=== PATIENT | female | born 1940 | race Two or more races ===

== ENCOUNTER 2019-07-28 12:22 | Inpatient (IN) | payer BC ==
[~2019-07-28] VITALS: Ht 165.1 cm; Wt 52.2 kg
--- NOTE | 2019-07-28 12:22 | NUR ---
BIB [facility] FROM HOME, LEFT HIP/THIGH PAIN AFTER SHE "LOST MY BALANCE" AND FELL ON HER LEFT SIDE,DENIES LOC/DIZZINESS, TO ER BED 10, HOOKED TO MONITOR, CHANGED TO HOSP GOWN, NOTED W L HIP SWELLING. POSITIONED IN COMFORT. AWAITING MD CHAHAL.
[2019-07-28] MEDS ORDERED: LISI2.5T2 PO (12:31)
--- NOTE | 2019-07-28 13:02 | NUR ---
DR COWAN AT BEDSIDE
--- NOTE | 2019-07-28 13:35 | NUR ---
SUPERVISOR LINE DEPARTMENT AT BEDSIDE
[2019-07-28] MEDS ORDERED: MORPHINE SULFATE INJ 2 MG/ML DISP.SYRIN IV ONE ×2 (14:00→15:30)
[2019-07-28] MEDS ORDERED: ONDANSETRON HCL/PF 4 MG/2 ML VIAL IVP ONE (14:00)
[2019-07-28] MEDS ORDERED: ONDANSETRON HCL/PF 4 MG/2 ML VIAL ONE ×2 (14:23→15:04)
[2019-07-28] MEDS ORDERED: MORPHINE SULFATE INJ 4 MG/ML DISP.SYRIN ONE (14:23)
[2019-07-28 14:34] LABS: BASOPHILS % (AUTO) 0.6 % (0.0-2.0); HEMATOCRIT 35 % (33-45); HEMOGLOBIN 11.9 g/dL (11.5-14.8); LYMPHOCYTES # (AUTO) 1.1 /CMM (0.8-4.8); LYMPHOCYTES % (AUTO) 14.7 % (20.0-44.0); MEAN CORPUSCULAR HGB CONC 34 g/dl (31.0-36.0); MEAN CORPUSCULAR VOLUME 90 fL (82-100); MONOCYTES # (AUTO) 0.7 /CMM (0.1-1.30); NEUTROPHILS # (AUTO) 5.6 /CMM (1.8-8.9); NEUTROPHILS % (AUTO) 73.7 % (43.0-81.0); PLATELET COUNT (AUTO) 269 /CMM (150-450); WHITE BLOOD COUNT (AUTO) 7.5 K/uL (4.3-11.0)
[2019-07-28 14:38] LABS: CALCIUM, SERUM 8.6 mg/dL (8.5-10.1); CREATININE 0.6 mg/dL (0.6-1.3); POTASSIUM 4.1 mmol/L (3.5-5.1)
--- NOTE | 2019-07-28 14:49 | NUR ---
117-[address] [facility]
[2019-07-28] MEDS ORDERED: MORPHINE SULFATE INJ 2 MG/ML DISP.SYRIN ONE (15:04)
[2019-07-28] MEDS ORDERED: LISI10TA5 PO (15:08)
[2019-07-28] MEDS ORDERED: ALEN70TA6 PO (15:08)
[2019-07-28] MEDS ORDERED: CYCL30DR OP (15:08)
[2019-07-28] MEDS ORDERED: ONDANSETRON HCL/PF - ER 4 MG/2 ML VIAL IV ONE (15:30)
--- NOTE | 2019-07-28 15:32 | NUR ---
CALLED [facility], PAGED ANGEL LUIS HARDY
--- NOTE | 2019-07-28 15:34 | NUR ---
CALLED [facility] FOR CONSULT
--- NOTE | 2019-07-28 16:00 | NUR ---
india middleton at bedside
[2019-07-28] MEDS ORDERED: IV NS 0.9% 1,000 ML IV PRN (16:46)
[2019-07-28] MEDS ORDERED: MAG HYDROX/AL HYDROX/SIMETH 30 ML UDC PO PRN (17:00)
[2019-07-28] MEDS ORDERED: ACETAMINOPHEN 325 MG TABLET PO PRN (17:00)
[2019-07-28] MEDS: DOCUSATE SODIUM 100 MG CAPSULE PO SCH (17:00)
[2019-07-28] MEDS ORDERED: Z GUARD REMEDY 2 OZ OINT TP PRN (17:00)
[2019-07-28] MEDS ORDERED: MAGNESIUM HYDROXIDE 30 ML UDC PO PRN (17:00)
--- NOTE | 2019-07-28 17:12 | NUR ---
REPORT GIVEN TO LEONORA GONSALES OF MS UNIT
--- NOTE | 2019-07-28 17:45 | NUR ---
MS RN NOTE RECEIVED PATIENT FROM ER WITH DX FX LT HIP UDDER CARE ANGEL LUIS HERBERT RN REPLANTING MACHINE CREW PATIENT ALERT ORIENTED , VS [facility]ITAL ORIENTATION DONE , FAMILY AT BEDSIDE , STARTED ON IVF ORDERED RT AC HL INTACT AND FLUSHED WELL , BED IN LOWEST AND LOCKED POSITION , BELONGING CHECKED BY LEATHER FITTER C\O LT HIP PAIN ICE APPLIED , WILL KEEP NPO ORDERED Addendum: 07/28/19 at 1905 by GLORY GARCIA RN 2D ECHO DOING NOW
[2019-07-28 17:49] VITALS: BP 135/64
--- NOTE | 2019-07-28 18:00 | NUR ---
MS RN NOTE PATIENT REFUSED TO CHECK COMPLEAT BODY AND REFUSED TO PICTURE ON BOTH HEELS , WILL INDORSED TO NEXT SHIFT
[2019-07-28 18:15] VITALS: BP 135/64
--- NOTE | 2019-07-28 19:15 | NUR ---
RN NOTES: RECEIVED AWAKE ON BED,SHE WAS CRYING WITH RELATIVES ON BED SIDE, A/OX3, ON RA SPO2-99%,S/P FALL FROM HOME WITH FRACTURE OF THE LEFT HIP AREA, OKSANA [place]#20 PATENT, WITH NS AT 50ML/HR , ORIENTED TO UNIT AND STAFF, BED LOW AND LOCKED, CALL LIGHT WITHIN EASY REACH,FALL,SAFETY, AND ASPIRATION PRECAUTION OBSERVED.UPON ENDORSEMENT GIVEN PAIN MEDICATION, FOR CT SCAN OF LEFT HIP,KEEP ON CLOSE WATCH, NEEDS ANTICIPATED. Addendum: 07/28/19 at 2233 by SHAN LO RN ADDED NOTED: ECHO DONE UPON ENDORSEMENT PER TRAINING ANALYST EF-55%. STILL AWAITING FOR OFFICIAL RESULT.
[2019-07-28] MEDS: MORPHINE SULFATE INJ 2 MG/ML DISP.SYRIN IV PRN (19:27)
--- NOTE | 2019-07-28 19:33 | NUR ---
MS RN NOTE MORPHINE 2 MG IVP GIVEN ORDERED
[2019-07-28 20:00] VITALS: BP 160/70
--- NOTE | 2019-07-28 20:57 | NUR ---
RN NOTES: CT SCAN OF LEFT HIP DONE AT 2007, [place] [facility] [place], STILL AWAITING FOR THE RESULT. Addendum: 07/28/19 at 2058 by SHAN LO RN RN NOTES: FAMILY CAME AT 2049, EXPLAINED TO THEM IF ITS OK TO DO BODY ASSESSMENT, PATIENT PREFER TO REST AND SHE REFUSE TO BE MOVE/REPOSITION SHE FEEL PAIN UPON CHANGING OF POSITION AND ONLY NOW SHE FEEL MUCH BETTER, RESPECT FAMILY WISH TO DO BODY ASSESSMENT IN THE MORNING.
--- NOTE | 2019-07-28 22:23 | NUR ---
RN NOTES: CT SCAN OF THE LEFT HIP W/O CONTRAST RESULT IN- IMPRESSION: COMMINUTED INTERTROCHANTERIC FRACTURE OF THE LEFT HIP, DR. BURNETT NOTIFIED, HE ASKED IF PATIENT WAS SEEN BY ORTHO, NOT YET SEEN, LATEST BP-153/72 HR-108, PATIENT IS ASLEEP WITH SON PRESENT AT BEDSIDE(TRIM OPERATOR AWARE SON STAY PER PATIENT REQUEST).KEPT MONITORED.
--- NOTE | 2019-07-29 00:10 | NUR ---
RN NOTES; AWAKE COMPLAINED OF SEVERE PAIN ON THE LEFT HIP 05/04, SON REQUEST TO GIVE MORPHINE, BP 154/71 HR-113, PAIN MEDICATION GIVEN, KEPT ON CLOSE WATCH.
--- NOTE | 2019-07-29 00:56 | NUR ---
RN NOTES: SON PRESENT AT BED SIDE VERY CONCERN ABOUT HIS MOTHER INCREASE HR AND REQUEST FOR MONITOR, EXPLAINED TO HIM OF NOW SHE IS IN PAIN THAT IS WHY HER HR IS HIGH, IT IS SECONDARY TO PAIN DUE TO HER LEFT HIP FX S/P FALL, RELAYED TO LOKIE ENGINEER DR. BURNETT,HR IS =108 REGULAR, OF THIS TIME PATIENT REMAIN IN MED-SURG, HE ORDERED TO GET THE BASELINE EKG STAT,SHE MIGHT HAVE SURGERY TOMORROW. -EKG DONE AT 0040 SINUS TACHYCARDIA RATE-108.
[2019-07-29 04:00] VITALS: BP 134/75
[2019-07-29] MEDS: MORPHINE SULFATE INJ 2 MG/ML DISP.SYRIN IV PRN ×2 (04:06)
--- NOTE | 2019-07-29 04:23 | NUR ---
RN NOTES: 0406- ABLE TO SLEEP AT SHORT INTERVALS, WHEN SHE WAKE UP SHE COMPLAINED OF SEVERE PAIN ON HER LEFT HIP, PRN MEDS GIVEN, NON PHARMACOLOGIC INTERVENTION RENDERED.
--- NOTE | 2019-07-29 07:00 | NUR ---
RN INITIAL NOTE PATIENT IN BED, AWAKE AND ALERT. FAMILY AT BEDSIDE. NO COMPLAINS OF ANY PAIN NOR SOB AT THIS TIME. BED LOCKED AND IN LOWEST POSITION. CALL LIGHT WITHIN REACH, WILL CONTINUE TO MONITOR
--- NOTE | 2019-07-29 07:37 | NUR ---
RN NOTES: -SON AND DAUGHTER PRESENT AT BED SIDE, THEY EXPRESS THEIR FEELING THAT THEY ARE EXPECTING TO SEE AN ORTHO DOCTOR FIRST THING IN THE MORNING, REQUEST INCOMING RN TO F/U. -KEEP ON MONITORED, FALL,SAFETY AND ASPIRATION PRECAUTION OBSERVED, ENDORSED FOR CONTINUITY OF CARE.
[2019-07-29 08:00] VITALS: BP 150/82
[2019-07-29 08:02] LABS: BASOPHILS % (AUTO) 0.4 % (0.0-2.0); EOSINOPHILS % (AUTO) 0.2 % (0.0-6.0); HEMATOCRIT 34 % (33-45); HEMOGLOBIN 11.6 g/dL (11.5-14.8); LYMPHOCYTES # (AUTO) 1.5 /CMM (0.8-4.8); LYMPHOCYTES % (AUTO) 22.9 % (20.0-44.0); MEAN CORPUSCULAR HGB CONC 34 g/dl (31.0-36.0); MEAN CORPUSCULAR VOLUME 90 fL (82-100); MONOCYTES # (AUTO) 0.8 /CMM (0.1-1.30); MONOCYTES % (AUTO) 11.7 % (2.0-12.0); NEUTROPHILS # (AUTO) 4.2 /CMM (1.8-8.9); NEUTROPHILS % (AUTO) 64.8 % (43.0-81.0); PLATELET COUNT (AUTO) 241 /CMM (150-450); RED BLOOD CELL COUNT(AUTO) 3.79 MIL/uL (4.0-5.2); WHITE BLOOD COUNT (AUTO) 6.5 K/uL (4.3-11.0)
[2019-07-29 08:13] LABS: CALCIUM, SERUM 8.2 mg/dL (8.5-10.1); CARBON DIOXIDE 21 mmol/L (21-32); CHLORIDE 99 mmol/L (98-107); CREATININE 0.5 mg/dL (0.6-1.3); GLUCOSE 103 mg/dL (74-106); MAGNESIUM 1.7 mg/dL (1.8-2.4); PHOSPHORUS 3.1 mg/dL (2.5-4.9); POTASSIUM 3.8 mmol/L (3.5-5.1); SODIUM SERUM 133 mmol/L (136-145); UREA NITROGEN, BLOOD 14 mg/dL (7-18)
[2019-07-29 08:14] LABS: CHOLESTEROL 142 mg/dL (<200); HDL CHOLESTEROL 72 mg/dL (40-60); LDL 65 mg/dL (0-99); THYROID STIMULATING HORMONE 1.716 uIU/mL (0.358-3.74); TRIGLYCERIDES 41 mg/dL (30-150)
[2019-07-29] MEDS: DOCUSATE SODIUM 100 MG CAPSULE PO SCH ×2 (08:59→16:23)
[2019-07-29] MEDS: LISINOPRIL (10MG) 10 MG TABLET PO SCH ×2 (08:59→16:24)
[2019-07-29] MEDS ORDERED: Cyclosporine (Restasis) 1 EACH EACHEYE SCH (09:00)
[2019-07-29] MEDS: Magnesium 1GM/D5W 100ML PREMIX 100 ML IV SCH ×2 (09:38→11:37)
[2019-07-29] MEDS: IV NS 0.9% 1,000 ML IV PRN (09:59)
--- NOTE | 2019-07-29 10:59 | NUR ---
RN JASON LEVI WAS AT BEDSIDE, TALKED TO THE FAMILY AT BEDSIDE AND THE PATIENT. PATIENT CAN EAT NOW AND WILL PROBABLY HAVE SURGERY TOMORROW. Addendum: 07/29/19 at 1635 by QUOC BERMUDEZ RN SURGERY TOMORROW AT 11AM. CONSENT FORM SIGNED BY PATIENT.
--- NOTE | 2019-07-29 12:28 | NUR ---
RN NOTE PER PATIENT AND SON AT BEDSIDE, SHE DOES NOT TAKE Cyclosporine (Restasis) ANYMORE. DC'D FROM THE PATIENT'S HOME MEDICATION, PHARMACY AWARE
[2019-07-29 16:00] VITALS: BP 132/75
[2019-07-29] MEDS ORDERED: ANESTHESIA TRAY IN PYXIS 1 EA TRAY MC ONE (16:20)
[2019-07-29] MEDS: HYDROCODONE/APAP 5/325MG 1 EACH TABLET PO PRN ×2 (16:23→20:57)
--- NOTE | 2019-07-29 19:00 | NUR ---
RN CLOSING NOTE PATIENT IN BED, AWAKE AND ALERT. DAUGHTER AT BEDSIDE. COMPLAINING OF PAIN, BUT TOLERABLE. AWARE THAT SHE HAS PRN PAIN MEDS FOR TONIGHT. PATIENT WILL HAVE SX TOMORROW AT 11AM. ALL CONSENT FORMS SIGNED BY PATIENT. ALL MEDS GIVEN. ALL NEEDS MET. WILL ENDORSE TO NOC SHIFT FOR JOSEPH
[2019-07-29 20:00] VITALS: BP 157/73
--- NOTE | 2019-07-29 20:58 | NUR ---
patient with daughter mat bedside,complaining of pain to the left hip. norco dose given for pain. refused to be turned to sides. will try to check oin the back and remove theold sheet form themnback at=fter 20 minuteds as patient has not been moved since admission
--- NOTE | 2019-07-29 22:21 | NUR ---
patient refused to be turned and daughter is aware,
[2019-07-30] MEDS: IV NS 0.9% 1,000 ML IV PRN (00:25)
--- NOTE | 2019-07-30 00:31 | NUR ---
npo post midnight and ptient is aware, fortheschedule surgery in am.asleep.no further complaints kathia
[2019-07-30 04:00] VITALS: BP 162/76
--- NOTE | 2019-07-30 06:51 | NUR ---
patient id asleep. refused to be turned and changed ,daughter and fsmiy is aware, npo and maintained
--- NOTE | 2019-07-30 07:38 | NUR ---
patient npo for the ordered procedure ,wconsent signed. family request for the patient to be transfered to a private room. and will follow upo
[2019-07-30 08:00] VITALS: BP 160/80
[2019-07-30] MEDS: LISINOPRIL (10MG) 10 MG TABLET PO SCH (09:06)
[2019-07-30] MEDS: DOCUSATE SODIUM 100 MG CAPSULE PO SCH ×2 (09:07→09:08)
[2019-07-30] MEDS ORDERED: BACITRACIN 50000 UNITS/VIAL ONE (10:54)
[2019-07-30] MEDS ORDERED: BUPIVACAINE 0.5 % PF 150 MG/30 ML VIAL ONE (10:54)
[2019-07-30] MEDS ORDERED: HYDROMORPHONE INJ 2 MG/ML DISP.SYRIN ONE (11:02)
[2019-07-30 12:50] LABS: HEMOGLOBIN 11.6 g/dL (11.5-14.8)
[2019-07-30] MEDS ORDERED: ONDANSETRON HCL/PF 4 MG/2 ML VIAL ONE (12:56)
[2019-07-30] MEDS ORDERED: IV LR 1000 ML 1,000 ML IV PRN (13:00)
--- NOTE | 2019-07-30 14:06 | NUR ---
alert , oriented, and appropriate, on bedrest, npo for coming surgery, with ivf running at 100cc per hour, no complaint of pain on L hip picked up for surgery at 11am, back from surgery at 1330, alert, oriented, no complaint of pain. Left upper thigh with two dressing intact. Patient is to get regular diet when available. per protocol , patient is DNA until 11 am tomorrow, then swich back to NO CODE. Oncoming will be made aware to follow this up , strictly
[2019-07-30 16:00] VITALS: BP 130/78
--- NOTE | 2019-07-30 16:21 | NUR ---
regular diet offered, did not eat, only asked for cookies, and oj. given denied pain at this time," felt much better now, not pain like before"
[2019-07-30] MEDS: HYDROCODONE/APAP 5/325MG 1 EACH TABLET PO PRN ×2 (16:30→20:50)
[2019-07-30 17:13] VITALS: BP 140/76
--- NOTE | 2019-07-30 19:42 | NUR ---
MS/RN OPENING NOTES RECEIVED PATIENT IN BED, AWAKE, ALERT, X3, ABLE TO VERBALIZE NEEDS, DAUGHTER AT BEDSIDE, INVOLVE WITH CARE, LEFT HIP INCISION SITE COVERED AND INTACT. HARMON CATHETHER DRAINING URINE, ON ROOM AIR, RESPIRATIONS EVEN AND UNLABORED, SKIN WARM TO TOUCH, RIGHT AC GAUGE 20 RUNNING LR AT 75 CC/HR, LAST NORCO GIVEN 3 HOURS AGO, REQUESTED TO HAVE NORCO AT TIME DUE FOR PAIN REPORTED 7/10 ON LEFT HIP. PROVIDED EDUCATION ON SAFETY MEASURES AND ANTIBIOTIC THERAPY, WILL ADMINISTER ANTIBIOTIC VIA IV AND TO REMOVE HARMON IN AM, DRESSING TO BE CHANGE BY ORTHO MF, WILL F/U COMMUNICATION ON POLST TO BE DNR TOMORROE AT 11 AM , BED LOCKED, CALL LIGHTS WITHIN REACH. PATIENT WATCHING TV WITH DAUGHTER.
[2019-07-30 20:00] VITALS: BP 109/59
[2019-07-30] MEDS: ANCEF 1 GM/50 ML D5W IV SCH ×2 (20:07)
--- NOTE | 2019-07-30 20:56 | NUR ---
MS/RN NOTES MODERATE PAIN 7/10 ON LEFT HIP REPORTED WITH FRIMACING AND GUARDING, NORCO 5-325 MG PO GIVEN, WILL MONITOR RELIEF.
[2019-07-31] MEDS: ANCEF 1 GM/50 ML D5W IV SCH ×2 (03:41)
[2019-07-31] MEDS: IV NS 0.9% 1,000 ML IV PRN (03:41)
[2019-07-31 04:00] VITALS: BP 114/56
--- NOTE | 2019-07-31 04:06 | NUR ---
MS/RN NOTES PATIENT REQUESTED TO KEEP HARMON CATHETER TILL LATER THIS AM AFTER BREAKFAST ONCE PRIOE TO PT FELA.
[2019-07-31 06:08] LABS: BASOPHILS % (AUTO) 0.3 % (0.0-2.0); HEMATOCRIT 27 % (33-45); HEMOGLOBIN 9.1 g/dL (11.5-14.8); LYMPHOCYTES # (AUTO) 1.3 /CMM (0.8-4.8); LYMPHOCYTES % (AUTO) 13.9 % (20.0-44.0); MEAN CORPUSCULAR HGB CONC 34 g/dl (31.0-36.0); MEAN CORPUSCULAR VOLUME 90 fL (82-100); MONOCYTES # (AUTO) 0.8 /CMM (0.1-1.30); MONOCYTES % (AUTO) 9.1 % (2.0-12.0); NEUTROPHILS # (AUTO) 7.1 /CMM (1.8-8.9); NEUTROPHILS % (AUTO) 76.7 % (43.0-81.0); PLATELET COUNT (AUTO) 186 /CMM (150-450); RED BLOOD CELL COUNT(AUTO) 2.97 MIL/uL (4.0-5.2); WHITE BLOOD COUNT (AUTO) 9.2 K/uL (4.3-11.0)
[2019-07-31 06:10] LABS: CALCIUM, SERUM 7.3 mg/dL (8.5-10.1); CREATININE 0.6 mg/dL (0.6-1.3); POTASSIUM 4.3 mmol/L (3.5-5.1)
--- NOTE | 2019-07-31 06:27 | NUR ---
102-1 MS/RN CLOSING NOTES PATIENT ABLE TO SLEEP DURING THE NIGHT, COMPLIANT AND PARTICIPATIVE WITH CARE, RESPIRATIONS EVEN AND UNLABORED,PAIN MANAGED WITH NORCO 5-325 MG, ANTIBIOTIC IV ADMINISTERED, HARMON REQUESTED TO BE REMOVED ONCE PHYSICAL THERAPY EVALUATED PATIENT.TO ENDORSE TO AM RN REGARDING PLAN OF CARE WITH POLST TO BE CHANGE TO DNR INSTRUCTED. SKIN WARM TO TOUCH, LEFT HIP DRESSING INTACT TO BE CHANGE BY MR. SANDIE DE LA TORREORSER TO AM RN FOR JOSEPH. BED LOCKED, CALL LIGHT WITHIN REACH.
--- NOTE | 2019-07-31 07:00 | NUR ---
RN MS NOTES - OPENING PATIENT IS A/O X4 PATIENT IS ON ROOM AIR. PATIENT IS SATURATING WELL . PATIENT SHOWS NO SIGNS OF ACUTE DISTRESS NO SOB. EVEN AND UNLABORED BREATHING . PATIENT DOES HAVE A HARMON INTACT AND PATENT . PATIENT URINE IS YELLOW AND LEAR. PATIENT HAS L/ R HEEL REDNESS. WOUND CONSULT . PATIENT HAS L HIP INSCISION. DRESSING INTACT AND DRY. PER DR ORDER . FIRST DRESSING CHANGE TO BE DONE BY DR. PATIENT HAS R WRIST IV @ 100 ML/HR . TURNED AND REPOSITION Q2H. TURN OFTEN POSSIBLE BUT PATIENT IS IN 8/10 PAIN WHEN MOVING BED LOCKED AND LOWEST POSITION CALL LIGHT WITH IN REACH . ALL SAFETY MEASURE IMPLEMENTED PER HOSPITAL POLICY.
[2019-07-31 08:00] VITALS: BP 132/67
[2019-07-31] MEDS: LISINOPRIL (10MG) 10 MG TABLET PO SCH (09:32)
[2019-07-31] MEDS: DOCUSATE SODIUM 100 MG CAPSULE PO SCH ×2 (09:32→17:55)
[2019-07-31] MEDS: HYDROCODONE/APAP 5/325MG 1 EACH TABLET PO PRN (09:32)
[2019-07-31] MEDS: ENOXAPARIN SODIUM 40 MG/0.4 ML DISP.SYRIN SQ SCH (09:33)
--- NOTE | 2019-07-31 10:44 | NUR ---
WOUND CARE CONSULT: PT SEEN FOR SKIN ASSESSMENT AND NOTED TO HAVE BLANCHABLE REDNESS TO HEELS AND LEFT HIP SURGICAL DRESSING WHICH IS DRY AND INTACT. SLIGHT LEAKAGE OF HARMON CATH NOTED. DISCUSSED SKIN PROTECTION WITH NURSING STAFF. PT WORKING WITH P.T. WILL SEE PRN. AMOR IN AGREEMENT WITH PLAN OF CARE. CURRENT ABHIJEET SCORE IS 15.
[2019-07-31 11:23] LABS: IRON, SERUM 18 ug/dl (50-175); TOTAL IRON BINDING CAPACITY 148 ug/dl (250-450)
[2019-07-31 11:36] LABS: FERRITIN 127 ng/mL (8-388)
[2019-07-31 12:00] VITALS: BP 111/55
[2019-07-31 16:00] VITALS: BP 111/55
[2019-07-31 18:55] LABS: HEMOGLOBIN 9.3 g/dL (11.5-14.8)
--- NOTE | 2019-07-31 19:35 | NUR ---
RN OPENING NOTES RECEIVED REPORT FROM WILFREDO RNDARIO. Pt IS AWAKE, RESTING IN BED. DAUGHTER VISITING AT BEDSIDE. Pt IS A/OX2-3, VERBAL, ABLE TO MAKE NEEDS KNOWN, Pt IS FORGETFUL AT TIMES. NO S/S OF ACUTE DISTRESS OR SOB NOTED. Pt C/O PAIN, WILL ADMINISTER PAIN MED ROSALEE IF TIME IS DUE. IV ACCESS R WRIST #20G, IVF NS @50ML/HR. SAFETY MEASURES IN PLACE. BED LOW, LOCKED, HOB ELEVATED, SIDE RAILS UP, CALL LIGHT AND BEDSIDE TABLE WITHIN REACH. WILL CONTINUE TO MONITOR Pt's CONDITION & SAFETY THROUGHOUT THE NIGHT.
[2019-07-31 20:00] VITALS: BP 157/75
[2019-07-31] MEDS: MORPHINE SULFATE INJ 2 MG/ML DISP.SYRIN IV PRN (21:46)
[2019-07-31] MEDS: ONDANSETRON HCL/PF 4 MG/2 ML VIAL IVP PRN (21:51)
[2019-08-01 04:00] VITALS: BP 145/75
[2019-08-01] MEDS: ONDANSETRON HCL/PF 4 MG/2 ML VIAL IVP PRN (05:00)
[2019-08-01] MEDS: HYDROCODONE/APAP 5/325MG 1 EACH TABLET PO PRN ×3 (05:02→18:02)
[2019-08-01] MEDS: IV NS 0.9% 1,000 ML IV PRN (05:17)
[2019-08-01 06:17] LABS: BASOPHILS % (AUTO) 0.2 % (0.0-2.0); EOSINOPHILS % (AUTO) 0.9 % (0.0-6.0); HEMATOCRIT 27 % (33-45); HEMOGLOBIN 9.1 g/dL (11.5-14.8); LYMPHOCYTES # (AUTO) 1.4 /CMM (0.8-4.8); LYMPHOCYTES % (AUTO) 18.5 % (20.0-44.0); MEAN CORPUSCULAR HGB CONC 35 g/dl (31.0-36.0); MEAN CORPUSCULAR VOLUME 90 fL (82-100); MONOCYTES # (AUTO) 0.8 /CMM (0.1-1.30); MONOCYTES % (AUTO) 9.8 % (2.0-12.0); NEUTROPHILS # (AUTO) 5.5 /CMM (1.8-8.9); NEUTROPHILS % (AUTO) 70.6 % (43.0-81.0); PLATELET COUNT (AUTO) 195 /CMM (150-450); RED BLOOD CELL COUNT(AUTO) 2.93 MIL/uL (4.0-5.2); WHITE BLOOD COUNT (AUTO) 7.8 K/uL (4.3-11.0)
[2019-08-01 06:22] LABS: CALCIUM, SERUM 7.3 mg/dL (8.5-10.1); CARBON DIOXIDE 23 mmol/L (21-32); CHLORIDE 98 mmol/L (98-107); CREATININE 0.5 mg/dL (0.6-1.3); GLUCOSE 101 mg/dL (74-106); POTASSIUM 3.7 mmol/L (3.5-5.1); SODIUM SERUM 131 mmol/L (136-145); UREA NITROGEN, BLOOD 13 mg/dL (7-18)
--- NOTE | 2019-08-01 07:50 | NUR ---
RN CLOSING NOTES NO OTHER SIGNIFICANT CHANGES IN Pt's CONDITION. ALL NEEDS MET AND ATTENDED TO. ALL ORDERED MEDS GIVEN. Pt IS RESTING IN BED. NO S/S OF ACUTE DISTRESS OR SEVERE SOB NOTED DURING THE NIGHT. SAFETY MEASURES IN PLACE. ENDORSED TO DAYSHIFT RN FOR Pt's JOSEPH.
[2019-08-01 08:00] VITALS: BP 132/67
[2019-08-01] MEDS: LISINOPRIL (10MG) 10 MG TABLET PO SCH (10:21)
[2019-08-01] MEDS: DOCUSATE SODIUM 100 MG CAPSULE PO SCH ×2 (10:21→18:03)
[2019-08-01] MEDS: ENOXAPARIN SODIUM 40 MG/0.4 ML DISP.SYRIN SQ SCH (10:26)
[2019-08-01] MEDS ORDERED: ENOX40DI SQ (11:44)
[2019-08-01] MEDS: MORPHINE SULFATE INJ 2 MG/ML DISP.SYRIN IV PRN (12:52)
[2019-08-01] MEDS: SOD FERRIC GLUC 125 MG in IV NS 0.9% 100 ML IV SCH (14:28)
--- NOTE | 2019-08-01 16:28 | NUR ---
PENDING AUTHORIZATION ARU PER KYLIE.
--- NOTE | 2019-08-01 16:57 | NUR ---
ff. up with cm still pending placement.
[2019-08-01 18:38] VITALS: BP 158/68
--- NOTE | 2019-08-01 19:02 | NUR ---
RN OPENING NOTES RECEIVED REPORT FROM FELIPE GONSALES. Pt IS AWAKE, RESTING IN BED. REPORTS CURRENT PAIN LEVEL TO LEFT HIP 2/10. Pt IS A/OX3 PER REPORT SHE IS FORGETFUL, VERBAL, ABLE TO MAKE NEEDS KNOWN. NO S/S OF ACUTE DISTRESS OR SOB NOTED BREATHING IS EVEN AND UNLABORED. IV ACCESS R WRIST #20G, IVF NS @50ML/HR INFUSING WITH NO S/S OF COMPLICATIONS. SAFETY MEASURES IN PLACE. BED LOW, LOCKED, HOB ELEVATED SEMIFOWLERS POSITION, SIDE RAILS UP X2, CALL LIGHT AND BEDSIDE TABLE WITHIN REACH. WILL CONTINUE TO MONITOR.
[2019-08-01 20:00] VITALS: BP 144/71
--- NOTE | 2019-08-01 20:23 | NUR ---
NORCO FOUND AT BEDSIDE. NORCO PILL FOUND AT BEDSIDE TABLE. PT ASKED IF SHE HAD TAKEN THE NORCO AT 18OO. PT STATES "WELL I GOT NAUSEOUS LAST TIME I TOOK PAIN MEDICATIONS SO I REALLY WASNT SURE IF I REALLY WANTED IT SO I DIDN'T TAKE IT. MEDICATION REMOVED FROM BEDSIDE. UNABLE TO REVERSE/UNDO ADMINISTRATION BY FELIPE GONSALES.
[2019-08-02 04:00] VITALS: BP 130/72
--- NOTE | 2019-08-02 06:30 | NUR ---
RN CLOSING NOTES Pt IS AWAKE, RESTING IN BED. Pt IS A/OX3 PER REPORT SHE IS FORGETFUL, VERBAL, ABLE TO MAKE NEEDS KNOWN. NO S/S OF ACUTE DISTRESS OR SOB NOTED BREATHING IS EVEN AND UNLABORED. IV ACCESS R WRIST #20G, HEPLOCKED FLUSHED WITH NO S/S OF COMPLICATIONS. SAFETY MEASURES IN PLACE. BED LOW, LOCKED, HOB ELEVATED SEMIFOWLERS POSITION, SIDE RAILS UP X2, CALL LIGHT AND BEDSIDE TABLE WITHIN REACH.
[2019-08-02 08:00] VITALS: BP 105/66
[2019-08-02] MEDS: LISINOPRIL (10MG) 10 MG TABLET PO SCH (09:00)
[2019-08-02] MEDS: DOCUSATE SODIUM 100 MG CAPSULE PO SCH (09:12)
[2019-08-02] MEDS: ENOXAPARIN SODIUM 40 MG/0.4 ML DISP.SYRIN SQ SCH (09:20)
[2019-08-02] MEDS: SOD FERRIC GLUC 125 MG in IV NS 0.9% 100 ML IV SCH (15:34)
[2019-08-02 16:00] VITALS: BP 130/64
[2019-08-02 18:15] VITALS: BP 129/83
--- NOTE | 2019-08-02 19:30 | NUR ---
MS RN OPENING NOTE RECEIVED PATIENT IN BED. A/O X3, PER REPORT SHE IS FORGETFUL, ABLE TO MAKE NEEDS KNOWN. TOLERATING ROOM AIR, RESPIRATIONS ARE EVEN AND UNLABORED. NO S/S SOB NOTED. IN NO APPARENT DISTRESS. DENIES PAIN AT THIS TIME, UNLESS SHE MOVES. IV ACCESS IN LFA #22 PATENT AND SALINE LOCKED. BED IS LOW AND LOCKED, HOB ELEVATED IN SEMI FOWLERS, SIDE RIALS UP X2, BED ALARM ON. CALL LIGHT WITHIN REACH. WILL CONTINUE TO MONITOR.
[2019-08-02 20:00] VITALS: BP 120/60
[2019-08-03 04:00] VITALS: BP 137/63
--- NOTE | 2019-08-03 04:21 | NUR ---
MS RN NOTE PATIENT IS STATING SHE HAS PAIN WHEN VITAL SIGNS ARE BEING TAKEN BY [facility]OMEN AT 2000 AND 0400. I WENT TO PATIENTS BEDSIDE AND ASKED IF SHE WOULD LIKE ANYTHING FOR PAIN. SHE STATED NO BOTH TIMES. WILL CONTINUE TO MONITOR.
[2019-08-03] MEDS: HYDROCODONE/APAP 5/325MG 1 EACH TABLET PO PRN (04:48)
--- NOTE | 2019-08-03 04:48 | NUR ---
MS RN NOTE ADMINISTERED PRN NORCO 5/325 FOR PAIN 10/10 IN LEFT HIP. INFORMED PATIENT THAT IS HER PAIN IS A 10 SHE CAN RECEIVE MORPHINE, SHE REFUSED D/T IT CAUSING NAUSEA LAST TIME IT WAS ADMINISTERED, EDUCATED THAT SHE HAS ZOFRAN, STILL REFUSED AND WOULD LIKE TO TRY NORCO 5. INFORMED HER IT WILL TAKE 30 MINS - 1 HR. PATIENT IS OK WITH IT.
--- NOTE | 2019-08-03 06:09 | NUR ---
MS RN CLOSING NOTE PATIENT IN BED. A/O X, ABLE TO MAKE NEEDS KNOWN. REMAINS TOLERATING ROOM AIR, RESPIRATIONS ARE EVEN AND UNLABORED. NO SOB NOTED. NO DISTRESS NOTED. C/O PAIN MANAGED WITH NORCO 5/325. IV ACCESS MAINTAINED IN LFA #22 PATENT AND SALINE LOCKED. BED IS LOW AND LOCKED, HOB ELEVATED IN SEMI FOWLERS, SIDE RIALS UP X2, BED ALARM ON. CALL LIGHT WITHIN REACH. WILL ENDORSE TO NEXT SHIFT.
[2019-08-03 08:00] VITALS: BP 123/55
[2019-08-03] MEDS: LISINOPRIL (10MG) 10 MG TABLET PO SCH (09:31)
[2019-08-03] MEDS: DOCUSATE SODIUM 100 MG CAPSULE PO SCH (09:33)
[2019-08-03] MEDS: ENOXAPARIN SODIUM 40 MG/0.4 ML DISP.SYRIN SQ SCH (09:35)
[2019-08-03 12:00] VITALS: BP 115/56
[2019-08-03] MEDS: SOD FERRIC GLUC 125 MG in IV NS 0.9% 100 ML IV SCH (14:00)
--- NOTE | 2019-08-03 16:45 | NUR ---
ischarge Note: Patient was discharged to [facility] today via ambulance for continued care. Daughter present and will follow her to [facility]. VSS, denies pain. Toleraing food and fluids well. Provided instructions on hip fracture and precautions, flu/pna vaccine, MRSA, VTE prophylaxsis, and smoking cessation Dressing to left hip is c/d/i. Not to be removed at this time per MD order. IV removed. All personal belongings accounted for. Report to DRU Ayers. Transfer pack given to ambulance crew.
== END 2019-08-03 16:40 | disposition home or self-care (01) | DRG 481 ==
LOC: ER 12:23 → MEDSG1 15:56 → TELE1 07-30 10:34 → MEDSG1 07-30 13:24
PROVIDERS: ADMIT Nurse Practitioner Acute Care; ATTEND Internal Medicine
PROC: 0QS706Z Reposition Left Upper Femur with Intramedullary Internal Fixation Device, Open Approach (ICD-10-PCS; principal; 2019-07-30)
DX: M80.052A Age-related osteoporosis with current pathological fracture, left femur, initial encounter for fracture (principal); J98.11 Atelectasis; N17.9 Acute kidney failure, unspecified; G91.9 Hydrocephalus, unspecified; W01.0XXA Fall on same level from slipping, tripping and stumbling without subsequent striking against object, initial encounter; Z86.73 Personal history of transient ischemic attack (TIA), and cerebral infarction without residual deficits; Z87.891 Personal history of nicotine dependence; I10 Essential (primary) hypertension; I35.0 Nonrheumatic aortic (valve) stenosis; D50.9 Iron deficiency anemia, unspecified; W19.XXXA Unspecified fall, initial encounter; Y92.009 Unspecified place in unspecified non-institutional (private) residence as the place of occurrence of the external cause; Z88.1 Allergy status to other antibiotic agents; Z98.890 Other specified postprocedural states; Z79.899 Other long term (current) drug therapy; I44.7 Left bundle-branch block, unspecified
CPT/HCPCS: 36415; 71045-TC; 73020; 73502; 73700-TC; 80048-TC; 80061-TC; 82728-TC; 83540-TC; 83735-TC; 84100-TC; 84443-TC; 85025-TC; 85027-TC; 85730-TC; 87081-TC; 93307-TC; 97110-TC; 97116-TC; 97530-TC; A6209; C1713; G0378; J0690; J1100; J1170; J1650; J2270; J2405; J2704; J2916; J3475; J3490; J7030; J7060